=== PATIENT | male | born 1985 | race American Indian/Alaskan Native ===

== ENCOUNTER 2016-11-20 08:06 | Observation (INO) | payer OTHER ==
[2016-11-20 08:13] VITALS: BMI 22.0
[2016-11-20] MEDS ORDERED: Bacitracin Ointment 30 GM TUBE TOP STA (08:36)
[2016-11-20] MEDS ORDERED: Lidocaine 1% w Epi 1:100,000 Inj INJ STA (08:37)
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
[2016-11-20] MEDS ORDERED: Bacitracin 500 Units/gm Oint Foilpak UD ONE (09:23)
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
[2016-11-20 12:06] VITALS: BP 135/76; PULSE 90; RESP 18; TEMP 98.1
[2016-11-20 12:12] VITALS: O2SAT 100
== END 2016-11-20 12:12 | disposition home or self-care (01) ==
LOC: C.ER 08:06 → C.9OBSV 09:57
PROVIDERS: ADMIT Emergency Medicine; ATTEND Emergency Medicine
DX: S01.81XA Laceration without foreign body of other part of head, initial encounter (principal); Y04.2XXA Assault by strike against or bumped into by another person, initial encounter
CPT/HCPCS: 12011; 70450; 70486; 99285; G0378